=== PATIENT | male | born 1975 | race Caucasian/White ===

== ENCOUNTER 2022-04-18 13:43 | Emergency (ER) | payer OTHER, SELFPAY ==
--- NOTE | ~2022-04-18 | CT_ITS ---
EXAMINATION: CT HEAD WITHOUT CONTRAST CLINICAL INFORMATION: Head injury on Plavix. COMPARISON: None TECHNIQUE: Contiguous axial imaging was performed from the skull base to vertex without intravenous administration of contrast. This CT examination was performed using dose optimization techniques as appropriate, variously including the following: *Automated exposure control *Adjustment of mA and/or kV according to patient size (this includes techniques or standardized protocols for targeted exams where dose is matched to indication/reason for exam; i.e. extremities or head) *Use of iterative reconstruction technique DLP: 727 mGy-cm FINDINGS: There is no acute intra-axial, extra-axial bleed, masses or midline shift. There is no acute infarction evolution. The lateral ventricles are symmetrical in size and configuration without enlargement. The joshi to white matter differentiation is maintained normal. The lateral ventricles are symmetrical in size and configuration without enlargement. Bone windows reveal no calvarial abnormality. Bilateral paranasal sinuses and mastoid air cells are well-aerated with likely polyp or retention cyst in right maxillary sinus. The bony orbits, optic globe and optic nerve appears unremarkable. CT/CT head/brain wo IV con IMPRESSION: No acute intracranial process seen.
[2022-04-18 13:54] VITALS: BP 136/88; PULSE 90; O2SAT 98
[2022-04-18 14:00] VITALS: BP 118/61; PULSE 60; RESP 16; TEMP 36.1; O2SAT 97; BMI 26.7
--- NOTE | 2022-04-18 14:53 | PC.NURSE ---
HEAD LAC BANDAGED, ALERT, SPEECH CLEAR, STATES HE DOES NOT HAVE A JARAMILLO BUT DOES HAVE SORENESS TO THE AREA, TALKED W SERENA AND CT ORDERED . PT ON PAVIX, NO LOC
--- NOTE | 2022-04-18 14:55 | ED_ITS ---
HPI - Head Injury General Chief complaint: Head Injury Stated complaint: 3 IN HEAD LAC L EYEBROW S/P WALKIMG INTO OBJ @ [facility] Time Seen by Provider: 04/18/22 14:54 Source: patient Mode of arrival: ambulatory Limitations: no limitations History of Present Illness HPI Narrative: Patient is a 47-year-old male with history of heart disease with 6 stents presenting today after cutting head on a vent/ duct. Patient works in [employer], and states he stood up at work is struck head on a metal duct approximately 1 hour ago. Denies loss of consciousness, denies fall after head strike. Patient does report taking Plavix for heart disease. Denies nausea, vomiting, dizziness, changes in vision, weakness, numbness/tingling. MD Complaint: head injury Onset (ago): hour(s) Mechanism of Injury: work related injury Place: work Loss of Consciousness: no Location of injury: frontal Severity: moderate Associated symptoms: denies other symptoms Related Data Previous Rx's Medication Instructions Recorded ibuprofen 600 mg tablet 600 mg PO Q8H PRN pain #20 tabs 04/18/22 Allergies Allergy/AdvReac Type Severity Reaction Status Date / Time No Known Allergies Allergy Verified 04/18/22 14:02 Review of Systems Review of Systems: Constitutional: No Fever, No Chills ENT/Mouth: No sore throat, No Rhinorrhea, No Swallowing Difficulty Eyes: No Eye Pain, No Swelling, No Redness Cardiovascular: No Chest Pain, No SOB, No Orthopnea, No Edema Respiratory: No Cough, No Sputum, No Wheezing, No dyspnea Gastrointestinal: No Nausea, No Vomiting, No Diarrhea, No abdominal Pain, No Hematochezia, No Melena Genitourinary: No Dysuria, No Urinary Frequency, No Hematuria Musculoskeletal: No joint pain, No Myalgias Skin: +4 cm laceration above left eyebrow, No Skin Lesions, No rash Neuro: No Weakness, No Numbness, No Dizziness, No Headache PMFSH Social History Social History Advance Directives: No Advance Directives Information Provided: Yes Physical Exam Vital Signs: Vital Signs: Last Vital Signs Temp 97.0 F 04/18/22 14:00 Pulse 60 04/18/22 14:00 Resp 16 04/18/22 14:00 BP 118/61 04/18/22 14:00 Pulse Ox 97 04/18/22 14:00 O2 Del Method 04/18/22 14:00 BMI result Body Mass Index 26.7 Const: Other: Appearance: Alert. Oriented X3. No acute distress. HEENT: + 4 cm Linear laceration above left hairline, not actively bleeding. CVS: Normal heart rate and rhythm. Pulses normal. Respiratory: No respiratory distress. Skin: Skin warm and dry. Normal skin color. Normal skin turgor. No rashes. Extremities: Neuro: Oriented X 3. No motor deficit. No sensory deficit. Course Course Course Narrative: 47-year-old male presenting with laceration after striking head on a metal duct at work. On exam, 4 cm linear laceration of left scalp above anterior hair line, no active bleeding. Patient alert and oriented x3, no neuro deficits. Wound irrigated extensively, 6 manan placed. Patient educated on wound care and return instructions. Reevaluation(s) Reevaluation #1: CT scan is unremarkable. Stable for d/c home. Procedures Laceration Laceration 1: Site: scalp Side (If applicable): left Size (cm): 4 Description: linear Depth: simple, single layer Pre-repair: irrigated extensively Skin layer closed with: other ( 6 manan) Critical Care Time Critical Care Time Critical Care Time: No Discharge Plan Discharge Clinical Impression: Laceration of scalp Patient Disposition: Home, Self-Care Instructions: Laceration (ED) Additional Instructions: Keep wound clean and dry. You may use Tylenol, ibuprofen, and ice for pain as needed. Have manan removed by medical provider in 7-10 days. If you develop new or worsening symptoms call 911 or come back to the ER for further evaluation. Prescriptions: New ibuprofen 600 mg tablet 600 mg PO Q8H PRN (Reason: pain) Qty: 20 0RF Referrals: Nakia Mcadams MD [Primary Care Provider] - Stand Alone Forms: Work/School Release
[2022-04-18 16:00] VITALS: BP 134/73; PULSE 96; RESP 16; TEMP 36.5; O2SAT 98
[2022-04-18] MEDS: Acetaminophen 325 MG TABLET 975 MG PO (16:27)
[2022-04-18] MEDS: Ibuprofen 600 MG TABLET PO (16:27)
[2022-04-18] MEDS: Diphth,Pertus(ACell),Tet Adult 0.5 ML SYRINGE IM (16:28)
--- NOTE | 2022-04-18 16:31 | PC.NURSE ---
pt a&ox3, vss, tdap given left deltoid, pt tolerated well, reporting 6/10 pain, medicated per provider order.
== END 2022-04-18 16:34 | disposition home or self-care (01) ==
PROVIDERS: Emergency Provider Emergency Medicine Emergency Medical Services; PCP Internal Medicine
DX: S01.01XA Laceration without foreign body of scalp, initial encounter (principal); W26.8XXA Contact with other sharp object(s), not elsewhere classified, initial encounter; Y93.89 Activity, other specified; Y92.89 Other specified places as the place of occurrence of the external cause; Y99.0 Civilian activity done for income or pay
CPT/HCPCS: 12002; 70450; 90471; 90715; 99283; 99284

== ENCOUNTER → 2022-04-26 15:08 | Outpatient (BNVA) | payer OTHER, SELFPAY | PROVIDERS: PCP Internal Medicine; Visit Provider Internal Medicine | DX: Z48.02 Encounter for removal of sutures (principal); S01.01XA Laceration without foreign body of scalp, initial encounter; W26.8XXA Contact with other sharp object(s), not elsewhere classified, initial encounter | CPT/HCPCS: 99202; 99212 ==